=== PATIENT | male | born 1980 | race African-American/Black ===

== ENCOUNTER 2021-11-03 00:16 | Emergency (ER) | payer OTHER ==
[2021-11-03] MEDS ORDERED: KETOROLAC 30 MG/1 ML INJ IV ONE (01:18)
[2021-11-03] MEDS ORDERED: ONDANSETRON 4 MG/2 ML INJ IV ONE (01:18)
[2021-11-03] MEDS ORDERED: SODIUM CHLORIDE 0.9% 1000 ML 1,000 ML IV ONE (01:18)
--- NOTE | 2021-11-03 01:37 | Emergency Department Report ---
ED Abdominal Pain HPI - General Chief Complaint: Abdominal Pain Stated Complaint: PAIN IN LOWER RT SIDE Time Seen by Provider: 11/03/21 01:18 Source: patient Mode of arrival: Ambulatory Limitations: No Limitations - History of Present Illness Initial Comments: Patient 41-year-old male who presents for right flank pain radiating to right suprapubic x2 days. With dysuria urgency and urinary frequency. Patient denies hematuria. Denies history of renal stones. Pain is described as 5/10 aching sharp, there is associated nausea and vomiting. Symptoms are exacerbated by movement. Symptoms are relieved by rest. MD Complaint: abdominal pain, flank pain - Related Data Previous Rx's Medication Instructions Recorded Last Taken Type Ketorolac [Toradol] 10 mg PO Q6H PRN #12 tab 11/03/21 Unknown Rx Tamsulosin [Flomax] 0.4 mg PO QDAY #14 cap 11/03/21 Unknown Rx levoFLOXacin [Levaquin TAB] 500 mg PO QDAY 7 Days #7 tablet 11/03/21 Unknown Rx Allergies Allergy/AdvReac Type Severity Reaction Status Date / Time No Known Allergies Allergy Verified 11/03/21 01:44 ED Review of Systems ROS: Stated complaint: PAIN IN LOWER RT SIDE Other details as noted in HPI Constitutional: denies: chills, fever Eyes: denies: eye pain, eye discharge, vision change ENT: denies: ear pain, throat pain Respiratory: denies: cough, shortness of breath, wheezing Cardiovascular: denies: chest pain, palpitations Endocrine: no symptoms reported Gastrointestinal: abdominal pain, nausea, vomiting. denies: diarrhea, constipation Genitourinary: as per HPI, urgency, dysuria, frequency. denies: hematuria, testicular pain, testicular mass Musculoskeletal: back pain (Right flank). denies: joint swelling, arthralgia Skin: denies: rash, lesions Neurological: denies: headache, weakness, paresthesias Psychiatric: denies: anxiety, depression ED Past Medical Hx - Medications Home Medications: Home Medications Medication Instructions Recorded Confirmed Last Taken Type Ketorolac [Toradol] 10 mg PO Q6H PRN #12 tab 11/03/21 Unknown Rx Tamsulosin [Flomax] 0.4 mg PO QDAY #14 cap 11/03/21 Unknown Rx levoFLOXacin [Levaquin TAB] 500 mg PO QDAY 7 Days #7 tablet 11/03/21 Unknown Rx ED Physical Exam - General Limitations: No Limitations General appearance: alert, in no apparent distress - Head Head exam: Present: normocephalic, normal inspection - Eye Eye exam: Present: normal appearance, EOMI Pupils: Present: normal accommodation - ENT ENT exam: Present: normal orophraynx, mucous membranes moist - Neck Neck exam: Present: normal inspection, full ROM. Absent: tenderness, meningismus, lymphadenopathy, thyromegaly - Respiratory Respiratory exam: Present: normal lung sounds bilaterally. Absent: respiratory distress, wheezes, stridor, chest wall tenderness - Cardiovascular Cardiovascular Exam: Present: regular rate, normal rhythm, normal heart sounds. Absent: systolic murmur, diastolic murmur, rubs, gallop - GI/Abdominal GI/Abdominal exam: Present: soft, normal bowel sounds. Absent: distended, tenderness, guarding, rebound, rigid, mass, bruit - Rectal Rectal exam: Present: deferred - exam: Present: other - Extremities Exam Extremities exam: Present: normal inspection, full ROM - Expanded Upper Extremity Exam Left Shoulder Exam: Present: normal inspection Upper Arm exam: Present: full ROM ED Course Vital Signs 11/03/21 00:29 Temperature 98.7 F Pulse Rate 84 Respiratory 18 Rate Blood Pressure 190/103 O2 Sat by Pulse 98 Oximetry ED Medical Decision Making - Lab Data Result diagrams: 11/03/21 01:29 11/03/21 01:29 Labs 11/03/21 11/03/21 01:29 01:29 WBC 12.6 H RBC 5.05 H Hgb 15.1 Hct 45.2 MCV 90 MCH 30 MCHC 33 RDW 13.4 Plt Count 258 Lymph % (Auto) 13.7 Foard % (Auto) 4.8 Eos % (Auto) 1.5 Baso % (Auto) 0.5 Lymph # (Auto) 1.7 Foard # (Auto) 0.6 Eos # (Auto) 0.2 Baso # (Auto) 0.1 Seg Neutrophils % 79.5 H Seg Neutrophils # 10.0 H Sodium 138 Potassium 3.9 Chloride 98.4 Carbon Dioxide 26 Anion Gap 18 BUN 12 Creatinine 1.1 Estimated GFR > 60 BUN/Creatinine Ratio 11 Glucose 136 H Calcium 9.6 Total Bilirubin 0.60 AST 27 ALT 58 H Alkaline Phosphatase 79 Total Protein 7.8 Albumin 4.7 Albumin/Globulin Ratio 1.5 - Radiology Data Radiology results: report reviewed, image reviewed CT ABDOMEN AND PELVIS WITHOUT CONTRAST INDICATION / CLINICAL INFORMATION: renal stones. TECHNIQUE: Axial CT images were obtained through the abdomen and pelvis without IV contrast. All CT scans at this location are performed using CT dose reduction for ALARA by means of automated exposure control. COMPARISON: None available. FINDINGS: LOWER CHEST: Groundglass attenuation present within the left lower lobe. 4 mm pleural-based pulmonary nodule left lower lobe. LIVER: Diffuse low attenuation compatible with hepatic steatosis. GALLBLADDER / BILE DUCTS: No significant abnormality. Biliary ducts grossly unremarkable. SPLEEN: No significant abnormality. PANCREAS: No significant abnormality. ADRENALS: No significant abnormality. KIDNEYS/URETERS: 2-3 mm stone proximal right ureter at the level of inferior endplate L3. Mild proximal hydronephrosis. Kidneys and ureters otherwise unremarkable. STOMACH / DUODENUM / SMALL BOWEL: The stomach, duodenum, and small bowel demonstrate no significant abnormality. No specific abnormality of the mesentery demonstrated. COLON: No significant abnormality. APPENDIX: No significant abnormality. PERITONEUM: No free air or free fluid are present within the abdomen or pelvis. LYMPH NODES: No significant adenopathy. AORTA / ARTERIES: No significant abnormality. IVC / VEINS: No significant abnormality. URINARY BLADDER: No significant abnormality. REPRODUCTIVE ORGANS: No significant abnormality. ADDITIONAL ABDOMINAL/PELVIC FINDINGS: None. SKELETAL SYSTEM: No significant abnormality. IMPRESSION: 1. 2-3 mm stone proximal right ureter with mild proximal obstructive change. Signer Name: Talia Gibbs II, MD Signed: 11/03/2021 2:00 AM Workstation Name: [id number] Transcribed By: BRENDAN Dictated By: TALIA GIBBS II, MD Electronically Authenticated By: TALIA GIBBS II, MD Signed Date/Time: 11/03/21199 DD/ 0158 TD/TT: - Medical Decision Making Right flank pain is resolved to 05/29. CT abdomen and pelvis right 2 to 3 mm proximal ureteral stone , mild hydronephrosis. Plan DC to home with prescriptions. Follow-up with urology in 2 to 3 days. Return to emergency department should symptoms worsen. Patient verbalized agreement and understanding of discharge plan. Patient will be DC'd home in stable condition upon completion of IV fluids. Critical care attestation.: If time is entered above; I have spent that time in minutes in the direct care of this critically ill patient, excluding procedure time. ED Disposition Clinical Impression: Renal stones, Urethral stone Disposition: HOME / SELF CARE / HOMELESS Is pt being admited?: No Does the pt Need Aspirin: No Condition: Stable Instructions: Low-Purine Eating Plan, Kidney Stones Additional Instructions: Take medications as prescribed, follow-up with urologist in 2 to 3 days. Return to emergency department should symptoms worsen. Prescriptions: Tamsulosin [Flomax] 0.4 mg PO QDAY #14 cap levoFLOXacin [Levaquin TAB] 500 mg PO QDAY 7 Days #7 tablet Ketorolac [Toradol] 10 mg PO Q6H PRN #12 tab PRN Reason: Pain Referrals: ESPERANZA BIRCH MD [Staff Physician] - 3-5 Days Forms: Work/School Release Form(ED) Time of Disposition: 03:00
[2021-11-03 01:49] LABS: Basophils # (Auto) 0.1 K/mm3 (0.0-0.1); Basophils % (Auto) 0.5 % (0.0-1.8); Eosinophils # (Auto) 0.2 K/mm3 (0.0-0.4); Eosinophils % (Auto) 1.5 % (0.0-4.3); Hematocrit 45.2 % (35.5-45.6); Hemoglobin 15.1 gm/dl (11.8-15.2); Lymphocytes # (Auto) 1.7 K/mm3 (1.2-5.4); Lymphocytes % (Auto) 13.7 % (13.4-35.0); Mean Corpuscular HGB Conc 33 % (32-34); Mean Corpuscular Volume 90 fl (84-94); Monocytes # (Auto) 0.6 K/mm3 (0.0-0.8); Monocytes % (Auto) 4.8 % (0.0-7.3); Platelet Count 258 K/mm3 (140-440); Red Blood Count 5.05 M/mm3 (3.65-5.03); Red Cell Distribution Width 13.4 % (13.2-15.2)
--- NOTE | 2021-11-03 02:04 | Cat Scan Report ---
CT ABDOMEN AND PELVIS WITHOUT CONTRAST INDICATION / CLINICAL INFORMATION: renal stones. TECHNIQUE: Axial CT images were obtained through the abdomen and pelvis without IV contrast. All CT scans at this location are performed using CT dose reduction for ALARA by means of automated exposure control. COMPARISON: None available. FINDINGS: LOWER CHEST: Groundglass attenuation present within the left lower lobe. 4 mm pleural-based pulmonary nodule left lower lobe. LIVER: Diffuse low attenuation compatible with hepatic steatosis. GALLBLADDER / BILE DUCTS: No significant abnormality. Biliary ducts grossly unremarkable. SPLEEN: No significant abnormality. PANCREAS: No significant abnormality. ADRENALS: No significant abnormality. KIDNEYS/URETERS: 2-3 mm stone proximal right ureter at the level of inferior endplate L3. Mild proxim al hydronephrosis. Kidneys and ureters otherwise unremarkable. STOMACH / DUODENUM / SMALL BOWEL: The stomach, duodenum, and small bowel demonstrate no significant a bnormality. No specific abnormality of the mesentery demonstrated. COLON: No significant abnormality. APPENDIX: No significant abnormality. PERITONEUM: No free air or free fluid are present within the abdomen or pelvis. LYMPH NODES: No significant adenopathy. AORTA / ARTERIES: No significant abnormality. IVC / VEINS: No significant abnormality. URINARY BLADDER: No significant abnormality. REPRODUCTIVE ORGANS: No significant abnormality. ADDITIONAL ABDOMINAL/PELVIC FINDINGS: None. SKELETAL SYSTEM: No significant abnormality. IMPRESSION: 1. 2-3 mm stone proximal right ureter with mild proximal obstructive change. Signer Name: Santiago Gibbs II, MD Signed: 11/03/2021 2:00 AM Workstation Name: [id number]
[2021-11-03 02:06] LABS: Alanine Aminotransferase 58 units/L (7-56); Albumin 4.7 g/dL (3.9-5); BUN/Creatinine Ratio 11; Blood Urea Nitrogen 12 mg/dL (9-20); Calcium 9.6 mg/dL (8.4-10.2); Hemolysis Index 8
[2021-11-03] MEDS ORDERED: cefTRIAXone/NS 1 GM/50 ML 1 GM/50 ML BAG IV ONE (03:11)
[2021-11-03 04:52] VITALS: BP 167/72
== END 2021-11-03 04:52 | disposition home or self-care (01) ==
LOC: ED 00:16
DX: N20.0 Calculus of kidney (principal); N21.1 Calculus in urethra
CPT/HCPCS: 36415; 74176; 80053; 85025; 96361; 96365; 96375; 99284; J0696; J1885; J2405; J7030